=== PATIENT | male | born 1975 | race Hispanic/Latino ===

== ENCOUNTER 2024-09-16 12:17 | Emergency (ER) | payer OTHER ==
[~2024-09-16] VITALS: Ht 165.1 cm; Wt 143.8 kg
[2024-09-16 12:52] LABS: BASOPHILS 0.7 % (0-2); HEMATOCRIT 47.5 % (35.0-50.0); HEMOGLOBIN 15.6 g/dL (12.0-18.0); LYMPHOCYTES 24.7 % (24-44); MCH 29.4 (27-36); MCHC 32.8 g/dl (30-36); MCV 89.5 fl (81-99); MONOCYTES 7.7 % (0-12); NEUTROPHILS 65.9 % (39-80); PLATELET COUNT 177 K/uL (140-440); RBC 5.31 M/ul (4.3-5.7); RDW 14.2 (10.5-15.0)
[2024-09-16 13:15] LABS: ALBUMIN 3.1 g/dL (3.4-5.0); ALBUMIN/GLOBULIN RATIO 0.74 (1.1-2.4); ANION GAP 9.8 (7-21); BILIRUBIN, TOTAL 0.3 ng/dL (0.2-1.0); BUN/CREATININE RATIO 15.84 (6.0-28.6); CREATININE, SERUM 1.01 mg/dL (0.70-1.30); POTASSIUM 3.8 mmol/L (3.5-5.1); PROTEIN, TOTAL 7.3 g/dL (6.4-8.2)
[2024-09-16 13:29] LABS: INFLUENZA B NAA NEGATIVE (NEGATIVE); RESPIRATORY SYNCYTIAL VIR NAA NEGATIVE (NEGATIVE)
[2024-09-16 14:23] VITALS: BP 139/86
--- NOTE | 2024-09-18 14:56 | EKG ---
[facility] [address] [place], [place] [address] Signed Normal sinus rhythm Normal ECG No previous ECGs available Confirmed by Benito Heller MD ([id number]) on 09/18/2024 2:56:36 PM Electronically Signed By: BENITO HELLER MD 09/18/24 1456 PATIENT NAME: CARIE QUINTEROJOSE ANGEL Electrocardiogram DATE OF : 73 PHYSICIAN: BENITO HELLER MD REPORT #: [id number] REPORT IS CONFIDENTIAL AND NOT TO BE RELEASED WITHOUT AUTHORIZATION
== END 2024-09-16 14:24 | disposition home or self-care (01) ==
LOC: ED 12:17
PROVIDERS: Emergency Medicine
DX: J11.1 Influenza due to unidentified influenza virus with other respiratory manifestations (principal); G47.33 Obstructive sleep apnea (adult) (pediatric)
CPT/HCPCS: 36415; 71045; 80053; 83880; 84484; 85025; 87502; 93005; 93010; 99285-25; U0002